=== PATIENT | female | born 1990 | race African-American/Black ===

== ENCOUNTER 2017-03-26 11:57 | Emergency (ER) | payer SELFPAY ==
[2017-03-26] MEDS ORDERED: Iopamidol 370 76% 100 ML VIAL ONE (13:00)
[2017-03-26] MEDS ORDERED: HYDROcodone/Acetaminophen 10/325 mg Tablet ONE (13:25)
[2017-03-26] MEDS ORDERED: Naproxen 500 MG TAB ONE (13:25)
[2017-03-26 14:28] LABS: #Lymphocytes 1.9 thou/uL (1.20-3.40); #Monocytes 0.5 thou/uL (0.11-0.59); #Neutrophils 6.5 thou/uL (1.40-6.50); %Basophils 0.5 % (0.0-1.0); %Eosinophils 0.2 % (0.0-10.0); %Monocytes 5.6 % (0.0-10.0); %Neutrophils 72.8 % (42.0-75.0); Hemoglobin 13.2 g/dL (12.0-16.0); Mean Corpuscular HGB CONC 33.5 g/dL (32.0-36.0); Mean Corpuscular Volume 92.7 fl (81.0-99.0); Platelet Count 284 thou/uL (130-400); RBC Distribution Width 11.5 % (11.5-14.5); Red Blood Cell (RBC) Count 4.25 mill/uL (4.20-5.40)
[2017-03-26 14:36] LABS: BHCG - Serum Negative (NEGATIVE)
[2017-03-26 14:37] LABS: Pregs Control Background? CLEAR/WHITE (CLR/WHITE); Pregs Control Bar Appear? YES (CONTROL BAR)
[2017-03-26 14:46] LABS: ALT (SGPT) 22 U/L (8-55); AST (SGOT) 28 U/L (5-34); Albumin 4.5 g/dL (3.5-5.0); Alkaline Phosphatase 50 U/L (40-150); Anion Gap 15 mmol/L (10-20); BUN (Urea Nitrogen) 15 mg/dL (7.0-18.7); Calc. Creatinine Clearance 0 mL/min (70-130); Calcium 9.7 mg/dL (7.8-10.44); Carbon Dioxide 25 mmol/L (22-29); Chloride 104 mmol/L (98-107); Estimated GFR-MDRD Greater than 90; Globulin 3.9 g/dL (2.4-3.5); Glucose 82 mg/dL (70-105); Lipase 27 U/L (8-78); Potassium 3.9 mmol/L (3.5-5.1); Protein, Total 8.4 g/dL (6.0-8.3); Sodium 140 mmol/L (136-145)
[2017-03-26 15:08] LABS: Clarity Clear (Clear)
[2017-03-26 15:09] LABS: Bilirubin Negative (Negative); Blood, Urine Trace (Negative); Glucose, Urine (Dipstick) Negative (Negative); Icto Negative (Negative); Leukocyte Negative (Negative); Nitrite Negative (Negative); Protein, Urine (Dipstick) 30 mg/dL (Neg-Trace); pH, Urine 5.5 (5.0-9.0)
[2017-03-26 15:15] LABS: Bacteria/HPF Rare-Few HPF (None Seen); RBC/HPF 0-3 HPF (0-3); WBC/HPF 0-3 HPF (0-3)
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
== END 2017-03-26 17:46 | disposition home or self-care (01) ==
LOC: MADERS 11:57
DX: S00.11XA Contusion of right eyelid and periocular area, initial encounter (principal); S40.029A Contusion of unspecified upper arm, initial encounter; Y04.8XXA Assault by other bodily force, initial encounter
CPT/HCPCS: 36415; 70486; 70492; 80053; 81001; 83690; 84703; 85025; 87086; 93005